=== PATIENT | female | born 1930 | race African-American/Black ===

== ENCOUNTER 2019-01-24 09:55 | Emergency (ER) | payer BC, OTHER ==
[2019-01-24 10:31] VITALS: BMI 21.2
--- NOTE | 2019-01-24 10:37 | PDOC ---
History of Present Illness - History of Present Illness Initial Comments: 01/24/19 11:19 88f with no pmh presents to the ED brought by EMS after being found sitting down against a wall in the street. She says that she fell weak from the heat after walking in the street for 2 hours. She slid down slowly against a wall. EMS says she was sweating profusely. However she denies losing consciousness, hitting her head, having any chest pain , sob, or dizziness. <Camilo Meek - Last Filed: 01/24/19 14:00> <Radha Daugherty - Last Filed: 01/25/19 15:28> - General Stated Complaint: HEAT EXHAUSTION Time Seen by Provider: 01/24/19 10:33 Past History - Past Medical History COPD: No - Suicide/Smoking/Psychosocial Hx Smoking Status: No Smoking History: Never smoked Have you smoked in the past 12 months: No Number of Cigarettes Smoked Daily: 0 Information on smoking cessation initiated: No Hx Alcohol Use: No Drug/Substance Use Hx: No Substance Use Type: None Hx Substance Use Treatment: No <Camilo Meek - Last Filed: 01/24/19 14:00> <Radha Daugherty - Last Filed: 01/25/19 15:28> - Past Medical History Allergies/Adverse Reactions: Allergies Allergy/AdvReac Type Severity Reaction Status Date / Time No Known Allergies Allergy Verified 01/24/19 10:18 Review of Systems - Review of Systems Able to Perform ROS?: Yes Is the patient limited [place]er proficient: No Constitutional: No: Symptoms Reported HEENTM: No: Symptoms Reported Respiratory: No: Symptoms reported Cardiac (ROS): No: Symptoms Reported ABD/GI: No: Symptoms Reported : No: Symptoms Reported Musculoskeletal: No: Symptoms Reported Integumentary: No: Symptoms Reported Neurological: No: Symptoms reported All Other Systems: Reviewed and Negative <Camilo Meek - Last Filed: 01/24/19 14:00> *Physical Exam - Vital Signs Last Vital Signs Temp Pulse Resp BP Pulse Ox 98.3 F 70 18 181/91 H 99 01/24/19 10:18 01/24/19 10:18 01/24/19 10:18 01/24/19 10:18 01/24/19 10:18 - Physical Exam General Appearance: Yes: Appropriately Dressed, Thin. No: Apparent Distress HEENT: positive: EOMI, NICOL, Normal ENT Inspection Respiratory/Chest: positive: Lungs Clear, Normal Breath Sounds. negative: Chest Tender, Respiratory Distress Cardiovascular: positive: Regular Rhythm, Regular Rate, S1, S2 Gastrointestinal/Abdominal: positive: Normal Bowel Sounds, Flat, Soft. negative : Tender Musculoskeletal: positive: Normal Inspection. negative: CVA Tenderness Extremity: positive: Normal Capillary Refill, Normal Inspection, Normal Range of Motion Integumentary: positive: Normal Color, Dry, Warm, Other (hematoma over left hand , full ROM no pain. ) Neurologic: positive: Fully Oriented, Alert, Normal Mood/Affect, Normal Response , Motor Strength 5/5 <Camilo Meek - Last Filed: 01/24/19 14:00> - Vital Signs Last Vital Signs Temp Pulse Resp BP Pulse Ox 97.8 F 67 18 171/88 H 97 01/24/19 14:25 01/24/19 14:25 01/24/19 14:25 01/24/19 14:25 01/24/19 14:25 <Radha Daugherty - Last Filed: 01/25/19 15:28> ED Treatment Course - LABORATORY CBC & Chemistry Diagram: 01/24/19 10:45 01/24/19 13:21 <Camilo Meek - Last Filed: 01/24/19 14:00> - LABORATORY CBC & Chemistry Diagram: 01/24/19 10:45 01/24/19 13:21 - ADDITIONAL ORDERS Additional order review: 01/24/19 10:45 RBC 4.25 MCV 86.7 MCHC 32.5 RDW 13.1 MPV 8.5 Neutrophils % 69.9 D Lymphocytes % 25.6 D Monocytes % 2.9 L Eosinophils % 1.1 Basophils % 0.5 - Medications Given in the ED: ED Medications Discontinued Medications Generic Name Dose Route Start Last Admin Trade Name Freq PRN Reason Stop Dose Admin Potassium Chloride 10 meq in 100 mls @ 100 mls/hr 01/24/19 12:00 01/24/19 12: 07 Potassium Chloride 10 Meq Premix Ivpb - IVPB 01/24/19 12:59 100 mls/hr Q60M PREMA Administration Potassium Chloride 40 meq 01/24/19 11:53 01/24/19 12:07 K-Dur - PO 01/24/19 11:54 40 meq ONCE ONE Administration <Radha aDugherty - Last Filed: 01/25/19 15:28> Medical Decision Making - Medical Decision Making 01/24/19 11:25 88f brought to ems after she had to sit down in the street. Patient has full mentation, did not hit her head, no neuro deficits. We do not think this patient needs a ct scan. However will check her labs, give her liter of NS and reassess her vitals. Patient is asymptomatic. 01/24/19 11:56 Potassium is low atr 2.9. Will replete 01/24/19 12:18 EKG: Sinus bradycardia witgh 1st degree AV block. 01/24/19 13:58 Potassium now 3.8. ok to dc with follow up. <Camilo Meek - Last Filed: 01/24/19 14:00> *DC/Admit/Observation/Transfer - Discharge Dispostion Decision to Admit order: No <Camilo Meek - Last Filed: 01/24/19 14:00> - Discharge Dispostion Decision to Admit order: No <Radha Daugherty - Last Filed: 01/25/19 15:28> Diagnosis at time of Disposition: Heat collapse, Hypokalemia - Discharge Dispostion Disposition: HOME Condition at time of disposition: Improved - Referrals Referrals: [facility] [place] [Provider Group] [facility] [Provider Group] - Patient Instructions Printed Discharge Instructions: DI for Heat Exhaustion and Heat Stroke, High Blood Pressure (Hypertension) (Alternative Therapy), DI for Hypokalemia Additional Instructions: Come back to the emergency department for any new, worsening or concerning symptoms. Follow up with your primary care provider within the next 3 days. If you don't have one, please use one that referred to in this discharge paper.
[2019-01-24 11:15] LABS: BASO % 0.5 % (0-2.0); EOS % 1.1 % (0-4.5); HEMATOCRIT 36.8 % (32.4-45.2); LYMPH % 25.6 % (8-40); MCH 28.2 pg (25.7-33.7); MCHC 32.5 g/dl (32.0-36.0); MEAN CELL VOLUME 86.7 fl (80-96); MEAN PLT VOLUME 8.5 fl (7.5-11.1); MONO % 2.9 % (3.8-10.2); NEUT % 69.9 % (42.8-82.8); PLATELET COUNT 142 K/MM3 (134-434); RBC 4.25 M/mm3 (3.60-5.2); RDW 13.1 % (11.6-15.6); WHITE BLOOD COUNT 5.7 K/mm3 (4.0-10.0)
--- NOTE | 2019-01-24 11:18 | PDOC ---
Documentation entered by Kevon Atkinson SCRIBE, acting as scribe for Radha Daugherty MD. Radha Daugherty MD: This documentation has been prepared by the Demetrio wright Daniel, SCRIBE, under my direction and personally reviewed by me in its entirety. I confirm that the documentation accurately reflects all work, treatment, procedures, and medical decision making performed by me. Attending Attestation - Resident Resident Name: MeekCamilo - ED Attending Attestation I have performed the following: I have examined & evaluated the patient, The case was reviewed & discussed with the resident, I agree w/resident's findings & plan - HPI HPI: 01/24/19 10:33 The patient is an 88 year old female with no past medical history here today for evaluation of general weakness. The patient reports that she was walking outside en route to the hair salon and felt hot/flushed. She reports sliding down a wall and sitting down and bystanders called 911. She denies any head strike, loss of consciousness, and weakness. no seizures. no confusion or AMS Patient denies headache, lightheadedness. Denies fever, chills. Denies chest pain, shortness of breath. Denies nausea, vomiting, diarrhea, abdominal pain. currently asymptomatic and wishes to go home. Allergies: NKA 01/24/19 11:15 - Physicial Exam PE: 01/24/19 11:16 Agree with the resident's HPI and PE as documented in the electronic medical record. NAD, well appearing, GCS 15, alert, awake, oriented appropriately, talkative, EOMI, PERRL, MMM, nl conjunctiva, anicteric; neck supple. lungs clear, RRR, abdomen soft nontender. Back nontender. LESLIE x4, no focal neuro deficits. No peripheral edema. normal color for ethnicity, WWP. speech clear. gait stable. no ataxia. - Medical Decision Making 01/24/19 11:16 See HPI for details. Prior notes reviewed, including admissions, discharges and consultations. had prior syncope workup in 2013 here at [facility], with unremarkable workup, normal EF and echo. Vital signs reviewed, hypertensive but also very active and talking Vital Signs Temp Pulse Resp BP Pulse Ox 98.3 F 70 18 181/91 H 99 01/24/19 10:18 01/24/19 10:18 01/24/19 10:18 01/24/19 10:18 01/24/19 10:18 DDX near syncope, ACS , arrhythmia, anemia, electrolyte/metabolic derangements, heat exhaustion, dehydration. rhabdomyolysis. laboratory results and imaging reviewed, basic labs and lytes remarkable for low potassium 2.9, normal ck levels, no e/o breakdown or rhabdomyolysis Cardiac panel_neg trop, reassuring, unlikely cardiac with no cp, sob or syncope EKG normal sinus rhythm 59 bpm, 1st deg AV block, MS prolongation. narrow QRS, ST and T wave segments and morphology normal. Nonspecific T wave abnormalities no acute ekg changes to reflect hypoK, will replete and recheck ED course -interventions: IVF, potassium neuro intact, interactive, asymptomatic. feels better and eager for discharge which is appropriate. repeat potassium better no cp, sob or syncope, no recurrence of sx, ambulatory and feels better. no arrhythmias or other derangements. VS improved BP downtrending, 177/96. told to f/u PMD and referrals and recheck of bp, no indication to start meds now. Pt to be discharged in stable condition. Patient and family made aware of clinical impression, treatment recommendations and disposition plan, return precautions discussed (including but not limited to new or persistent/worsening symptoms, pain, fevers, or signs of infection, chest pain, respiratory distress , inability to tolerate oral intake, dehydration, syncope, or neurologic changes ). Follow up with PMD and/or specialist as recommended, follow up information provided, take medications as instructed for duration of time. continue with supportive care, avoid triggers and precipitants. All questions answered to patient's satisfaction and expressed understanding and comfort with this. At the time of discharge, the patient is alert, clinically improved, tolerating po and verbalizes understanding of instructions, satisfied with the care received and felt comfortable with the plan. Patient does not suffer from an acute life- threatening medical condition at this time and is safe for outpatient follow- up. 01/24/19 11:23 01/24/19 11:24 01/24/19 11:48 01/24/19 13:58 Heart Score/ECG Review #1 ECG reviewed & interpreted by me at: 10:55 General ECG Interpretation: Sinus Rhythm, Normal Rate, Normal Intervals Compared to previous ECG there are: No significant change 01/24/19 11:18 EKG normal sinus rhythm 59 bpm, 1st deg AV block, MS prolongation >200ms, narrow QRS, ST and T wave segments and morphology normal. Nonspecific T wave abnormalities 01/24/19 11:25
--- NOTE | 2019-01-24 11:36 | EKG ---
Test Reason : Blood Pressure : / mmHG Vent. Rate : 059 BPM Atrial Rate : 059 BPM P-R Int : 276 ms QRS Dur : 078 ms QT Int : 458 ms P-R-T Axes : 116 -05 -07 degrees QTc Int : 453 ms SINUS BRADYCARDIA WITH 1ST DEGREE A-V BLOCK VOLTAGE CRITERIA FOR LEFT VENTRICULAR HYPERTROPHY ABNORMAL ECG WHEN COMPARED WITH ECG OF 14-FEB-2014 13:43, [place] INTERVAL HAS INCREASED Confirmed by CHRISTINA MARTIN, PAYTON ([id number]) on 01/24/2019 11:36:09 AM Referred By: Confirmed By:PAYTON VASQUEZ MD
[2019-01-24 11:39] LABS: ALBUMIN 3.5 g/dl (3.4-5.0); BILIRUBIN,TOTAL 0.3 mg/dL (0.2-1); BLOOD UREA NITROGEN 16.8 mg/dL (7-18); CALCIUM 8.3 mg/dL (8.5-10.1); CREATININE 0.9 mg/dL (0.55-1.3); TOT PROT 7.1 g/dl (6.4-8.2)
[2019-01-24 11:53] LABS: POTASSIUM 2.9 mmol/L (3.5-5.1)
[2019-01-24] MEDS ORDERED: POTASSIUM CHLORIDE TABS 20 MEQ TABLET.ER (FP) PO ONE ×2 (11:53→12:06)
[2019-01-24] MEDS ORDERED: KCL 10 MEQ IVPB 10 MEQ/100 ML INFUS.BAG IVPB SCH ×2 (12:00)
[2019-01-24] MEDS ORDERED: KCL 10 MEQ IVPB 10 MEQ/100 ML INFUS.BAG IVPB ONE (12:06)
[2019-01-24 14:27] VITALS: BP 171/88; PULSE 67; TEMP 97.8
== END 2019-01-24 14:24 | disposition home or self-care (01) ==
LOC: JER 09:55
PROC: 3E033GC Introduction of Other Therapeutic Substance into Peripheral Vein, Percutaneous Approach (ICD-10-PCS; principal; 2019-01-24)
DX: T67.5XXA Heat exhaustion, unspecified, initial encounter (principal); X32.XXXA Exposure to sunlight, initial encounter; Y93.01 Activity, walking, marching and hiking; Y92.480 Sidewalk as the place of occurrence of the external cause
CPT/HCPCS: 36415; 80053; 82550; 84132; 84484; 85025; 93005; 93010; 99283-25